=== PATIENT | female | born 1945 | race Caucasian/White ===

== ENCOUNTER 2022-01-06 09:44 | Observation (INO) ==
--- NOTE | 2021-12-03 09:56 | PAT Medication Instructions ---
Medication Instructions Date of Service December 03, 2021 Home Medications albuterol sulfate 90 mcg/actuation aerosol inhaler (Ventolin HFA) 1 inh INHALATION QID PRN cholecalciferol (vitamin D3) 50 mcg (2,000 unit) capsule (Vitamin D3) 50 mcg PO HS citalopram 20 mg tablet 20 mg PO HS levothyroxine 50 mcg tablet 50 mcg PO QAM multivitamin 1 tab PO DAILY propranolol 120 mg capsule,24 hr,extended release 120 mg PO QPM simvastatin 20 mg tablet 20 mg PO HS DO NOT take the morning of surgery multivitamin 1 tab PO DAILY Take morning of surgery With a small sip of water, OTHERWISE NOTHING TO EAT OR DRINK AFTER MIDNIGHT: albuterol sulfate 90 mcg/actuation aerosol inhaler (Ventolin HFA) 1 inh INHALATION QID PRN (use if needed; please bring with you to hospital day of surgery if possible) levothyroxine 50 mcg tablet 50 mcg PO QAM Take evening before surgery albuterol sulfate 90 mcg/actuation aerosol inhaler (Ventolin HFA) 1 inh INHALATION QID PRN (if needed) cholecalciferol (vitamin D3) 50 mcg (2,000 unit) capsule (Vitamin D3) 50 mcg PO HS citalopram 20 mg tablet 20 mg PO HS propranolol 120 mg capsule,24 hr,extended release 120 mg PO QPM simvastatin 20 mg tablet 20 mg PO HS Other Notes If you have any questions please call us at [phone] or [phone] or [phone] or [phone]
--- NOTE | 2021-12-07 14:23 | Anesthesiology Consultation ---
Date of Service December 07, 2021 Assessment & Plan (1) Encounter for pre-operative examination: - COVID screening: Per assessment on 12/07: No known COVID-19 positive contacts or current COVID-19 related symptoms. Travel screen negative. Patient vaccinate d. Surgeon arranging preop COVID testing. Awaiting results. - Post-op complications: After cholecystectomy (20+ years ago), patient was being transferred to recovery area and states she needed mouth to mouth for a few minutes (no chest compressions). Patient reports no further issues for hospital stay and able to be discharged in normal timeframe. No further f ollowup/workup was recommended. No similar issues with multiple other surgeries/anesthesia. Chart Review Chart Review: Acceptable Risk for Surgery and Patient seen in Pre Admission Testing Teaching & Discussion Pre-Anesthesia Teaching/Discussion Notes: Instructed NPO after midnight before surgery,except medications with 15 cc of water. Medication instructions provided according to the PAT guidelines. History Surgery Operation Date: 01/06/22 08:15 Proposed Procedures p Left Total Knee Arthroplasty - Julio Vilchis DO Height/Weight Height: 4 ft 11 in Weight: 77.4 kg Allergies Allergy/AdvReac Type Severity Reaction Status Date / Time Iodinated Contrast Media Allergy Severe Hives, Verified 12/04/21 10:52 dyspnea codeine Allergy Intermediate Hives Verified 12/03/21 08:06 droperidol [From Inapsine] Allergy Intermediate Eye Verified 12/04/21 10:52 drooping morphine Allergy Intermediate Hives Verified 12/03/21 08:06 Sulfa (Sulfonamide Allergy Intermediate Hives Verified 12/03/21 08:06 Antibiotics) Medications Home Medications Medication Instructions Recorded Confirmed Last Taken albuterol sulfate 90 mcg/actuation 1 inh INHALATION QID PRN 12/03/21 12/03/21 Unknown aerosol inhaler (Ventolin HFA) cholecalciferol (vitamin D3) 50 50 mcg PO HS 12/03/21 12/03/21 Unknown mcg (2,000 unit) capsule (Vitamin D3) citalopram 20 mg tablet 20 mg PO HS 12/03/21 12/03/21 Unknown levothyroxine 50 mcg tablet 50 mcg PO QAM 12/03/21 12/03/21 Unknown multivitamin 1 tab PO DAILY 12/03/21 12/03/21 Unknown propranolol 120 mg capsule,24 120 mg PO QPM 12/03/21 12/03/21 Unknown hr,extended release simvastatin 20 mg tablet 20 mg PO HS 12/03/21 12/03/21 Unknown Tylenol 1 tab PO HS 12/07/21 12/07/21 Unknown ibuprofen 1 tab PO HS 12/07/21 12/07/21 Unknown Past Medical History Medical History Acid reflux Depression History of anemia hx iron infusions History of COVID-19 06/2021 > symptoms at time: congestion/body aches > resolved Hx of breast cancer Right s/p surgery/radiation No limb restriction Hx of bronchitis Reason for inhaler Hyperlipidemia Hypothyroidism Osteoarthritis Vascular migraine Reason for propranolol Remote episode of migraines associated with syncopal episodes- no episode in several years Exercise / Class Metabolic Activity II 4-5 Yardwork/Stairs/Walk up hill (one FS (no CP, no SOB)) Past Family History Family History Sister Family history of diabetes mellitus Other No family history of adverse response to anesthesia Past Surgical History Surgical History H/O hand surgery LEFT THUMB TENDON REPAIR History of appendectomy History of bunionectomy RT History of carpal tunnel release RT/LEFT History of cataract surgery RT/LEFT History of section X 1 History of cholecystectomy History of colonoscopy History of esophagogastroduodenoscopy (EGD) History of hysterectomy History of lumpectomy of right breast History of salpingo-oophorectomy & EVACUATION ECTOPIC History of tooth extraction Past Anesthesia History No Family Hx of Anesthesia Complications After cholecystectomy (20+ years ago), patient was being transferred to recovery area and states she needed mouth to mouth for a few minutes (no chest compressions). Patient reports no further issues for hospital stay and able to be discharged in normal timeframe. No further followup/workup was recommended. History of PONV No Hx of PONV and No Hx of Motion Sickness Social History Smoking Status: Never smoker Do You Dip or Chew Tobacco: No Hx Alcohol Use: Yes alcohol intake frequency: holidays/special occasions only substance use type: does not use Review of Systems Patient denies chest pain, shortness of breath, dyspnea on exertion, fever, chills, cough, wheezing, palpitations. Physical Exam Vital Signs VITALS BP 120/74 P 59 TEMP 98.3 SP02 97%RA RESP 16 PHYSICAL Mildly decreased cervical extension range of motion. Full TMJ range of motion. TMD 2 finger breaths (Small chin) Mallampati Score 3 Dentition: missing molar, + caps Lungs: clear throughout to auscultation Cardiac: regular rate and rhythm, no murmurs noted Spine: normal Carotid arteries: negative bruit Extremities: no edema Lab Results Anesthesia Preop Results Results Anesthesia Widget: WBC 5.27 K/uL (4.8-10.8) 12/07/21 Hgb 14.1 g/dL (12.0-16.0) 12/07/21 Hct 41.7 % (37-47) 12/07/21 Plt 192 K/uL (130-400) 12/07/21 Na 139 mmol/L (136-145) 12/07/21 K 4.2 mmol/L (3.5-5.1) 12/07/21 Cl 105 mmol/L (98-107) 12/07/21 CO2 28 mmol/L (21-32) 12/07/21 BUN 19 mg/dl (6-23) 12/07/21 Creat 0.68 mg/dl (0.6-1.2) 12/07/21 Glucose Level 77 mg/dl (70-99(Fasting)) 12/07/21 PT 10.7 Seconds (9.0-12.0) 12/07/21 PTT 26.8 Seconds (21.0-31.0) 12/07/21 INR 1.0 (0.9-1.1) 12/07/21 HA1c 5.6 % (4.5-5.6) 12/07/21 Urine Color Yellow 12/07/21 Urine Appearance Clear (Clear) 12/07/21 Urine pH 5.0 (4.5-7.5) 12/07/21 Urine Specific [place] 1.016 (1.000-1.030) 12/07/21 Urine Protein Negative (Negative) 12/07/21 Urine Glucose (UA) Negative (Negative) 12/07/21 Urine Ketones 2+ (Negative) H 12/07/21 Urine Blood Negative (Negative) 12/07/21 Urine Nitrite Negative (Negative) 12/07/21 Urine Bilirubin Negative (Negative) 12/07/21 Urine Urobilinogen Negative (Negative) 12/07/21 Urine Leukocyte Esterase 1+ (Negative) H 12/07/21 Urine WBC (Auto) 10-30 /hpf (0-5) H 12/07/21 Urine RBC (Auto) 0-4 /hpf (0-4) 12/07/21 Urine Hyaline Casts (Auto) 0 /lpf (0-5) 12/07/21 Urine Epithelial Cells (Auto) 20-30 /lpf (0-5) H 12/07/21 Urine Bacteria (Auto) 2+ (Negative) H 12/07/21 Blood Type AB Positive 12/07/21 Antibody Screen NEGATIVE 12/07/21 Testing Laboratory Results Surgeon's office made aware of abnormal UA* Electrocardiogram Date: 12/07/21 SB at 59bpm. NS STA. Chest X-Ray Date: 12/07/21 FINDINGS: The cardiomediastinal and hilar silhouettes are within normal limits. No pneumothorax, pleural effusion, airspace consolidation or overt pulmonary edema. Mild right hemidiaphragmatic elevation. Surgical clips project over the right axilla. Degenerative changes of the shoulders and spine. IMPRESSION: No acute process.
--- NOTE | 2021-12-15 08:35 | History & Physical Report ---
Date of Service December 15, 2021 date of surgery: 01/06/22 Procedure: Left Total Knee Arthroplasty Surgeon: Julio Vilchis Assessment & Plan (1) Arthritis of knee, left: Plan: Further care discussed with patient and at this point in time has failed conservative measures and would like to proceed with a left total knee replacement. Plan on discharge will be home with home health physical therapy. DVT prophylaxiswith TEDs, SCDs and will also place on aspirin 81 mg p.o. b.i.d. for a month postop. Patient will have follow up appointment in our office two weeks post op for staple/suture removal and re-evaluation. Patient otherwise has no other questions or concerns. The risks and benefits have been discussed including, but not limited to, risk of infection, nerve injury, stiffness, loss of motion, failure to improve, etc. Reasonable outcomes and options of treatment were discussed. An explanation of appropriate alternatives to the procedure that may be advantageous were discussed and their risks and benefits, as well as the risks and benefits of not proceeding with treatment. I offered to answer any additional inquiries concerning the treatment involved. All the patient's questions were answered. The patient is agreeable, understanding of the treatment plan and alternatives, and wishes to proceed with the treatment plan. History of Present Illness Chief Complaint: left knee pain Primary Care Provider: Julio Vilchis DO Lilly is a 76 year old female who complains of left knee pain, presents for pre-op evaluation prior to a left total knee replacement. she complains of pain, decreased range of motion and stiffness. Currently the patient states that the symptoms are moderate-severe and rated as 8/10. The pain is described as aching, sharp and throbbing. Her symptoms are aggravated by ascending stairs, daily activities, first steps while awake walking. Prior NSAIDs include IBU and Aleve as well as used Tylenol. She has been treated with previous visco injections in the past without much relief. she also had prior knee arthroscopy by Dr Devlin in 2019. Allergies Allergy/AdvReac Type Severity Reaction Status Date / Time Iodinated Contrast Media Allergy Severe Hives, Verified 12/04/21 10:52 dyspnea codeine Allergy Intermediate Hives Verified 12/03/21 08:06 droperidol [From Inapsine] Allergy Intermediate Eye Verified 12/04/21 10:52 drooping morphine Allergy Intermediate Hives Verified 12/03/21 08:06 Sulfa (Sulfonamide Allergy Intermediate Hives Verified 12/03/21 08:06 Antibiotics) Home Medications Medication Instructions Recorded Confirmed Type albuterol sulfate 90 mcg/actuation 1 inh INHALATION QID PRN 12/03/21 12/03/21 History aerosol inhaler (Ventolin HFA) cholecalciferol (vitamin D3) 50 50 mcg PO HS 12/03/21 12/03/21 History mcg (2,000 unit) capsule (Vitamin D3) citalopram 20 mg tablet 20 mg PO HS 12/03/21 12/03/21 History levothyroxine 50 mcg tablet 50 mcg PO QAM 12/03/21 12/03/21 History multivitamin 1 tab PO DAILY 12/03/21 12/03/21 History propranolol 120 mg capsule,24 120 mg PO QPM 12/03/21 12/03/21 History hr,extended release simvastatin 20 mg tablet 20 mg PO HS 12/03/21 12/03/21 History Tylenol 1 tab PO HS 12/07/21 12/07/21 History ibuprofen 1 tab PO HS 12/07/21 12/07/21 History Past Med/Surg History Medical History Acid reflux Depression History of anemia hx iron infusions History of COVID-19 06/2021 > symptoms at time: congestion/body aches > resolved Hx of breast cancer Right s/p surgery/radiation No limb restriction Hx of bronchitis Reason for inhaler Hyperlipidemia Hypothyroidism Osteoarthritis Vascular migraine Reason for propranolol Remote episode of migraines associated with syncopal episodes- no episode in several years Surgical History H/O hand surgery LEFT THUMB TENDON REPAIR History of appendectomy History of bunionectomy RT History of carpal tunnel release RT/LEFT History of cataract surgery RT/LEFT History of section X 1 History of cholecystectomy History of colonoscopy History of esophagogastroduodenoscopy (EGD) History of hysterectomy History of lumpectomy of right breast History of salpingo-oophorectomy & EVACUATION ECTOPIC History of tooth extraction Family History Sister Family history of diabetes mellitus Other No family history of adverse response to anesthesia Social History Smoking Status: Never smoker Second Hand Exposure: Yes (IN THE PAST); Hx Alcohol Use: Yes 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 Required: No Beliefs That Will Affect Care: None Current Living Situation: Spouse Feels Safe at Home: Yes Assistive Devices: Glasses Review of Systems Review of Systems: All systems reviewed & are unremarkable except as noted in HPI & below Constitutional: no fever, no chills and no sweats Respiratory: no cough and no dyspnea Cardiovascular: no chest pain, no dyspnea and no orthopnea Gastrointestinal: no abdominal pain, no nausea and no vomiting Musculoskeletal: as per Subjective / HPI Physical Exam Physical Exam: HT: 4ft 11in WT: 77.4kg Constitutional: WD/WN, vitals as above no acute distress Respiratory: normal respiratory effort, lungs clear to auscultation no respiratory distress, no labored breathing and does not use accessory muscles Cardiovascular: RRR, no murmur, no edema Gastrointestinal (Abdomen): normal bowel sounds, soft, nontender, no hepatosplenomegaly Musculoskeletal: Knee: + knee abnormal to inspection (LEFT KNEE- ), + effusion (+1 effusion), + surgical incision (well healed portals), + limited ROM of knee (ROM 0/3/110), + knee ROM with crepitation, + joint line tenderness (medial joint line) and + Carmela's sign positive; no deformity, no skin erythema, no ecchymosis, no valgus laxity, no varus laxity, anterior drawer test negative, Filiberto's sign negative and pivot shift test negative Results & Data Results & Data ([facility]) Diagnostic Findings Left Knee X-ray: left knee series confirm advanced degenerative changes to the left knee, greatest medial compartments and patellofemoral joint, showing joint space narrowing, osteophyte formation and subchondral sclerosis. no acute bony pathology noted.
[~2022-01-06 09:44] MED LIST: ACETAMINOPHEN 500 MG TAB PO SCH; BUPIVACAINE 0.5 % 5 MG/1 ML PF 10ML VIAL ONE; CeleBREX 200 MG CAP PO SCH; EPINEPHrine INJ 1 MG/ML AMP ONE; FAMOTIDINE 20 MG TAB PO SCH; GABAPENTIN 300 MG CAP PO SCH; LR 500ML BOLUS, THEN 15ML/HR IV SCH; METOCLOPRAMIDE HCL 10 MG TABLET PO SCH; ROPIVACAINE 0.5% 5 MG/ML 30 ML VIAL ONE; ROPIVACAINE 0.5% HCL/PF 150 MG, BUPIVACAINE 0.75% MPF 20 ML, EPINEPHrine 30MG/30ML (OR ... INFIL SCH; TRANEXAMIC ACID 1,000 MG **IV Intra-op IV SCH; TRANEXAMIC ACID 1,000 MG **IV Pre-op IV SCH; ceFAZolin 2000MG 2,000 MG/15 ML SYR IV SCH; dexAMETHasone 4 MG TAB PO SCH
[2022-01-06] MEDS ORDERED: ONDANSETRON INJ 2 MG/ML 2 ML VIAL IV PRN (10:09)
[2022-01-06] MEDS ORDERED: fentaNYL citrate 100 MCG/2 ML VIAL IV PRN (10:09)
[2022-01-06] MEDS ORDERED: ATROPINE SULFATE 0.1 MG/ML 10ML SYR IV PRN (10:09)
[2022-01-06] MEDS ORDERED: ePHEDrine sulfate 50 MG/ML AMP IV PRN (10:09)
[2022-01-06] MEDS ORDERED: PHENYLEPHRINE 100MCG/ML 5ML SYR IV PRN (10:09)
[2022-01-06] MEDS ORDERED: LABETALOL HCL IV 5 MG/ML 20ML IV PRN (10:09)
--- NOTE | 2022-01-06 10:45 | History & Physical Bridge Note ---
Date of Service January 06, 2022 History & Physical Bridge Note I have examined the patient, reviewed the History & Physical and in the interval since the performance of the History & Physical I have noted the following changes of clinical significance: no changes noted
[2022-01-06] MEDS ORDERED: PROPOFOL IV EMULSION 10 MG/ML 20 ML VIAL IV ONE ×2 (11:13→14:00)
[2022-01-06] MEDS ORDERED: fentaNYL citrate 100 MCG/2 ML VIAL ONE (11:13)
[2022-01-06] MEDS ORDERED: LIDOCAINE 2% 2 ML VIAL/AMP(20MG/ML) INFIL ONE (11:13)
[2022-01-06] MEDS ORDERED: ORTHO JOINT ANESTHETIC ONE (12:16)
[2022-01-06] MEDS ORDERED: MIDAZOLAM HCL 1 MG/ML 2ML VIAL ONE (12:44)
--- NOTE | 2022-01-06 13:59 | Operative Report ---
Post Operative Report Pre & Post Diagnosis Operation Date: 01/06/22 12:10 Pre-Op Diagnosis: Left Knee Osteoarthritis Post-Op Diagnosis: Left Knee Osteoarthritis Procedure Operation Date: 01/06/22 12:10 Actual Procedures p Left Total Knee Arthroplasty(Left) - Julio Vilchis DO Surgeon Julio Vilchis DO I attest to the content of the Intraoperative Record and any orders documented therein. Any exceptions are noted below.
--- NOTE | 2022-01-06 14:01 | Operative Report ---
Post Operative Report Pre & Post Diagnosis Operation Date: 01/06/22 12:10 Pre-Op Diagnosis: Left Knee Osteoarthritis Post-Op Diagnosis: Left Knee Osteoarthritis I identified the patient and participated in the time-out.: Yes Procedure Operation Date: 01/06/22 12:10 Actual Procedures p Left Total Knee Arthroplasty(Left utilizing [employer] journey 2 patient matched size 4 femur 3 tibia 11 polytwenty 9 oval patella- Julio Vilchis DO Surgeon Julio Vilchis DO Magnesium Mill Operator Brandon VALLE Estimated Blood Loss 5 Findings Consistent with Post-Op Diagnosis Patient presents with severe end-stage tricompartmental degenerative joint disease left knee varus alignment subchondral sclerosis marginal osteophytes subchondral cystic changes with a moderate to large effusion Specimens Bone and cartilage Drains Medium bore Hemovac Anesthesia Type MAC Spinal Regional Complications none Disposition Accompanied Patient To Recovery: No Disposition: Recovery Room Indications Patient presents with severe end-stage DJD failing attempted conservative management above intraoperative findings were noted patient failed attempted corticosteroid injection viscosupplementation relative rest activity modification the above intraoperative findings were noted Description of Procedure After proper prepping and draping of the left lower extremity anterior midline incision was made over the region of the extensor extensor mechanism after meticulous hemostasis was obtained and maintained in subcutaneous tissues a medial parapatellar incision was made The patella was subluxed lateralward the medial lateral gutter were cleaned from any hypertrophic synovitis and scar tissue of the distal femoral block was placed and the distal femoral osteotomy cut was made subsequently the chamfers anterior and posterior osteotomy cuts were made utilizing the 4-in-1 block the tibia was subsequently subluxed anteriorward medial and ateral meniscal remnants were excised in their entirety remnants of the anterior and posterior cruciate ligaments were excised in their entirety excellent exposure of the proximal tibia was obtained the tibial osteotomy guide was placed on the proximal tibial osteotomy cut was made once again the knee was irrigated with copious amounts of sterile saline solution the patella was subsequently everted lateralward thickened scar tissue around the patella was removed the patella was subsequently cut utilizing a freehand technique and was drilled prepared for final preparation and placement of patella socially flexion-extension gaps were checked and the equal and symmetric trials were placed to the appropriate femoral and tibial trials with poly-spacer being placed for equal flexion and extension gaps and full range of motion including extension to 0 and flexion to 140 the trial components after having been taken to recovery range of motion was subsequently removed meticulous hemostasis was obtained and maintained subsequently a knee block injection of joint cocktail including ropivacaine 0.5% 150 mg. Bupivacaine 0.5% epinephrine 1-200,030 mL's toradol 30 mg dexamethasone 4 mg ketamine 10 mg clonidine 100 micrograms normal saline solution 30 mg was infiltrated into the soft tissues of the posterior knee medial lateral gutters and periosteal synovium special attention was paid to protect neurovascular structures at all times subsequently trial components having been removed the knee was irrigated with sterile saline solution. debris was removed the proximal tibia was subsequently prepared and was made ready for the placement of the tibial component tibial component was also cemented and tamped into position the femoral component was subsequently placed and cemented in the position the patellar component was subsequently cemented in position because hemostasis once again obtained and maintained wound having been thoroughly irrigated with debridement and debridement lavage was performed as well as a medial parapatellar incision closed with #1 Vicryl in interrupted fashion subcutaneous was closed with #2 Vicryl skin was closed with skin clips. PA-C was necessary for prepping and drapping as well as wound closure of deep fascia Sub cutaneous tissue and skin and was necessary for the case. A sterile compressive dressing was placed patient was taken to recovery in stable condition of report dictated by Deng I attest to the content of the Intraoperative Record and any orders documented therein. Any exceptions are noted below.Due to the complex nature of the procedure, the entire surgery was performed with the operational assistance of Brandon GERMAN. The wet process miller head assistant, under direct supervision, was involved in the actual performance of all aspects of the surgical procedure including hemostasis, tissue retraction and incision, instrument management, patient positioning, and wound closure. I attest to the content of the Intraoperative Record and any orders documented therein. Any exceptions are noted below.
--- NOTE | 2022-01-06 15:28 | XRay Report ---
XR knee LT 1 or 2V routine CLINICAL HISTORY: Surgical Post Op TECHNIQUE: 2 views of the left knee were obtained. Comparison: None available at the time of this dictation. FINDINGS: Expected postsurgical appearance of left total knee arthroplasty. No periarticular lucency or hardwar e fracture is seen. Soft tissue swelling and subcutaneous emphysema are seen. IMPRESSION: Expected postoperative appearance status post placement of total knee arthroplasty. ACT 112: Negative or not required by law. Electronically signed by: Hammad Springer M.D. 01/06/2022 3:27 PM
--- NOTE | 2022-01-06 15:36 | Anesthesiology Progress Note ---
Date of Service January 06, 2022 Anesthesia Post Procedure Vital Signs Vital Signs: Temp Pulse Pulse Resp BP Pulse Ox 01/06/22 15:35 36.4 C L 63 18 131/59 L 96 01/06/22 15:25 36.4 C L 62 16 145/68 H 95 01/06/22 15:15 65 18 129/67 96 01/06/22 15:05 65 16 138/80 100 01/06/22 14:55 60 16 151/72 H 100 01/06/22 14:46 36.8 C 62 16 178/89 H 97 01/06/22 10:10 36.6 C 62 20 159/93 H 97 Transfer of Care Handoff Completed per policy Notes Mental Status: alert / awake / arousable Patient Amnestic to Procedure: Yes Nausea / Vomiting: adequately controlled Pain: adequately controlled Airway Patency, RR, SpO2: stable & adequate BP & HR: stable & adequate Hydration State: stable & adequate Neuraxial Anesthesia: was administered and sensory block is resolving Anesthetic Complications: no major complications apparent and Pt Satisfied with anesthetic care
[2022-01-06] MEDS ORDERED: NALOXONE HCL 0.4 MG/1 ML VIAL/CARP IV PRN (17:01)
[2022-01-06] MEDS ORDERED: MAGNESIUM HYDROXIDE SUSP 30 ML UDC PO PRN (17:01)
[2022-01-06] MEDS ORDERED: bisacodyL 10 MG SUPP PR PRN (17:01)
[2022-01-06] MEDS ORDERED: ALBUTEROL HFA 8 GM INHALER INH PRN (17:01)
[2022-01-06] MEDS ORDERED: HYDROmorphone INJ 0.5 MG/0.5 ML SYR IV PRN (17:01)
[2022-01-06] MEDS: SODIUM CHLORIDE 0.9% 1000ML 1,000 ML IV SCH (18:19)
[2022-01-06] MEDS ORDERED: CHOLECALCIFEROL 1,000 UNITS 25 MCG TAB PO SCH (21:00)
[2022-01-06] MEDS ORDERED: CITALOPRAM 20 MG TAB PO SCH (21:00)
[2022-01-06] MEDS ORDERED: SIMVASTATIN 20 MG TAB PO SCH (21:00)
[2022-01-06] MEDS ORDERED: SENNA 8.6 MG TAB PO SCH (21:00)
[2022-01-06] MEDS ORDERED: PROPRANOLOL HCL 60 MG LA CAP PO SCH (21:00)
[2022-01-06] MEDS: ASPIRIN 81 MG ECTAB PO SCH (21:58)
[2022-01-06] MEDS: ceFAZolin 1000MG 1,000 MG/7.5 ML SYR IV SCH (21:59)
[2022-01-06] MEDS: DOCUSATE SODIUM 100 MG CAP PO SCH (21:59)
[2022-01-06] MEDS: ACETAMINOPHEN 500 MG TAB PO SCH (22:00)
[2022-01-06] MEDS: oxyCODONE HCL IR 5 MG TAB (IMMEDIATE RELEASE) PO PRN (22:12)
[2022-01-07] MEDS: oxyCODONE HCL IR 5 MG TAB (IMMEDIATE RELEASE) PO PRN ×3 (03:31→15:34)
[2022-01-07] MEDS: SODIUM CHLORIDE 0.9% 1000ML 1,000 ML IV SCH (05:20)
[2022-01-07 06:18] LABS: Hematocrit (blood only) 34.8 % (37-47); Mean Corpuscular Hemoglobin 29.3 pg (25-34); Mean Corpuscular Hgb Conc 34.5 g/dL (32-36); Mean Corpuscular Volume 84.9 fL (80-100); Mean Platelet Volume 8.6 fL (7.4-10.4); Platelet Count 147 K/uL (130-400); RDW Coefficient of Variation 12.6 % (11.5-14.5); RDW Standard Deviation 38.7 fL (36.4-46.3); White Blood Count 11.63 K/uL (4.8-10.8)
[2022-01-07] MEDS: ceFAZolin 1000MG 1,000 MG/7.5 ML SYR IV SCH (06:24)
[2022-01-07] MEDS: ACETAMINOPHEN 500 MG TAB PO SCH ×2 (06:24→13:36)
[2022-01-07] MEDS ORDERED: LEVOTHYROXINE SODIUM 50 MCG TABLET PO SCH (06:30)
[2022-01-07 06:33] LABS: BUN Creatinine Ratio 24.6 (10-20); Calcium 8.3 mg/dl (8.5-10.1); Creatinine Clr Calc Pharmacy 64.3 ml/min; Est GFR (African American) 99.3 ml/min; Est GFR (Non-African American) 85.6 ml/min; Potassium 4.2 mmol/L (3.5-5.1)
[2022-01-07] MEDS: ONDANSETRON INJ 2 MG/ML 2 ML VIAL IV PRN ×2 (06:44→12:28)
[2022-01-07] MEDS: DOCUSATE SODIUM 100 MG CAP PO SCH (08:32)
[2022-01-07] MEDS: ASPIRIN 81 MG ECTAB PO SCH (08:32)
[2022-01-07] MEDS ORDERED: MULTIVITAMIN TAB PO SCH (09:00)
--- NOTE | 2022-01-07 09:02 | Orthopedic Progress Note ---
Date of Service January 07, 2022 Assessment & Plan (1) Arthritis of knee, left: Plan: Postop day 1 status post left total knee arthroplasty. PT/OT protocols. Weightbearing as tolerated. DVT prophylaxis-aspirin p.o. twice daily, SCDalexandra, FIFI child. Pain management as written. DC planning-patient is planning for home health services upon discharge. Admission and Anticipated Discharge Date Admission Date: January 06, 2022 Supervising Physician Co-Signing Physician Notes Patient seen and examined. Agree with LEONARD Claire's note as above. She is doing very well. Pain is controlled and she is mobilizing well. She feels ready for discharge. Subjective Postop day 1 Patient sitting in her chair at the bedside eating breakfast. No complaints this morning. Pain is controlled. Denies shortness of breath, chest pain, lightheadedness. Physical Exam Physical Exam: Dressings are clean, dry, and intact. Calves are soft and nontender. Neurovascular is intact. Toes are mobile. She has good dorsiflexion and plantarflexion of the left foot. Hemovac drainage was 125 cc from the previous shift. Results & Data ([facility]) Vital Signs (Past 12 Hours) Vital Signs Temp Pulse Resp BP Pulse Ox 01/07/22 07:12 36.6 C 61 16 99/58 L 96 01/07/22 04:05 36.4 C L 63 16 108/66 97 01/06/22 22:10 36.5 C 60 14 115/70 97 Laboratory Results Laboratory Results WBC 11.63 K/uL (4.8-10.8) H 01/07/22 05:39 RBC 4.10 M/uL (4.2-5.4) L 01/07/22 05:39 Hgb 12.0 g/dL (12.0-16.0) 01/07/22 05:39 Hct 34.8 % (37-47) L 01/07/22 05:39 MCV 84.9 fL (80-100) 01/07/22 05:39 MCH 29.3 pg (25-34) 01/07/22 05:39 MCHC 34.5 g/dL (32-36) 01/07/22 05:39 RDW Std Deviation 38.7 fL (36.4-46.3) 01/07/22 05:39 RDW Coeff of Ruddy 12.6 % (11.5-14.5) 01/07/22 05:39 Plt Count 147 K/uL (130-400) 01/07/22 05:39 MPV 8.6 fL (7.4-10.4) 01/07/22 05:39 Sodium 135 mmol/L (136-145) L 01/07/22 05:39 Potassium 4.2 mmol/L (3.5-5.1) 01/07/22 05:39 Chloride 108 mmol/L (98-107) H 01/07/22 05:39 Carbon Dioxide 22 mmol/L (21-32) 01/07/22 05:39 Anion Gap 5 (3-11) 01/07/22 05:39 BUN 16 mg/dl (6-23) 01/07/22 05:39 Creatinine 0.65 mg/dl (0.6-1.2) 01/07/22 05:39 Est Cr Clr Drug Dosing 64.3 ml/min 01/07/22 05:39 Est GFR ( Amer) 99.3 ml/min 01/07/22 05:39 Est GFR (Non-Af Amer) 85.6 ml/min 01/07/22 05:39 BUN/Creatinine Ratio 24.6 (10-20) H 01/07/22 05:39 Glucose 168 mg/dl (70-99(Fasting)) H 01/07/22 05:39 Calcium 8.3 mg/dl (8.5-10.1) L 01/07/22 05:39 SARS-CoV-2, RNA, NAAT NEGATIVE (NEGATIVE) 01/06/22 10:00 Impressions Knee X-Ray 01/06/22 14:56 XR knee LT 1 or 2V routine CLINICAL HISTORY: Surgical Post Op TECHNIQUE: 2 views of the left knee were obtained. Comparison: None available at the time of this dictation. FINDINGS: Expected postsurgical appearance of left total knee arthroplasty. No periarticular lucency or hardware fracture is seen. Soft tissue swelling and subcutaneous emphysema are seen. IMPRESSION: Expected postoperative appearance status post placement of total knee arthroplasty. ACT 112: Negative or not required by law. Electronically signed by: Hammad Springer M.D. 01/06/2022 3:27 PM
[2022-01-07] MEDS ORDERED: ONDANSETRON 4 MG OD TAB PO PRN (12:39)
--- NOTE | 2022-01-10 13:12 | Discharge Summary ---
Date of Service January 10, 2022 Admission HPI Per Admitting Provider Lilly is a 76 year old female who complains of left knee pain, presents for pre-op evaluation prior to a left total knee replacement. she complains of pain, decreased range of motion and stiffness. Currently the patient states that the symptoms are moderate-severe and rated as 8/10. The pain is described as aching, sharp and throbbing. Her symptoms are aggravated by ascending stairs, daily activities, first steps while awake walking. Prior NSAIDs include IBU and Aleve as well as used Tylenol. She has been treated with previous visco injections in the past without much relief. she also had prior knee arthroscopy by Dr Devlin in 2019. Admission Exam Per Admitting Provider Physical Exam: HT: 4ft 11in WT: 77.4kg Constitutional: WD/WN, vitals as above no acute distress Respiratory: normal respiratory effort, lungs clear to auscultation no respiratory distress, no labored breathing and does not use accessory muscles Cardiovascular: RRR, no murmur, no edema Gastrointestinal (Abdomen): normal bowel sounds, soft, nontender, no hepatosplenomegaly Musculoskeletal: Knee: + knee abnormal to inspection (LEFT KNEE- ), + effusion (+1 effusion), + surgical incision (well healed portals), + limited ROM of knee (ROM 0/3/110), + knee ROM with crepitation, + joint line tenderness (medial joint line) and + Carmela's sign positive; no deformity, no skin erythema, no ecchymosis, no valgus laxity, no varus laxity, anterior drawer test negative, Filiberto's sign negative and pivot shift test negative Principal Diagnosis Left Knee Osteoarthritis Discharge Data Allergies Allergy/AdvReac Type Severity Reaction Status Date / Time Iodinated Contrast Media Allergy Severe Hives, Verified 01/06/22 10:07 dyspnea codeine Allergy Intermediate Hives Verified 01/06/22 10:07 droperidol [From Inapsine] Allergy Intermediate Eye Verified 01/06/22 10:07 drooping morphine Allergy Intermediate Hives Verified 01/06/22 10:07 Sulfa (Sulfonamide Allergy Intermediate Hives Verified 01/06/22 10:07 Antibiotics) Procedures Performed Operation Date: 01/06/22 12:10 Actual Procedures p Left Total Knee Arthroplasty(Left) - Julio Vilchis DO Ordered Studies 01/06/22 05:00 US - OR guided needle placemen Routine Hospital Course (1) Arthritis of knee, left: Patient:LILLY PEREZ Admit Date:01/06/22 MR#:[id number] Att Phy:Julio Vilchis D.O. Acct ID:[id number] Julita Phy:ObeyCristhian Griffiths D.O. Date:1945 Fam Phy: Age:76 Location:3E Sex:F Room/Bed:E311-1 cc: ~ *NOTICE TO RECEIVING LIBERTARIAN/AGENCY This information is strictly Confidential and protected under [place] law. [place] law prohibits you from making any further disclosure of this information unless further disclosure is expressly permitted by the written consent of the person to whom it pertains or is authorized by law. A general authorization for the release of medical or other information is not sufficient for this purpose. Hospital accepts no responsibility if the information is made available to any other person, INCLUDING THE PATIENT. ADDENDUM 01/07/22ddendum January 07, 2022 13:03 Correction: Patient was notably flexing and extending her toes this morning but later found she had a weakness with dorsiflexion of her foot. He does have a slight foot drop which is likely secondary to intraoperative injection. We discussed that this usually takes time to resolve over the next couple of days. Patient understands and has been instructed by physical therapy on how to work with her foot. It is not impeding her ambulation. She also has become somewhat nauseated but she does not feel it secondary to medications. Antiemetics are helping. She currently still wanting to go home. She states she did well with her physical therapy. Will plan for dc to home today. Addendum Signed By: <Electronically signed by Brandon Claire PA-C> 01/07/221315 Addendum Cosigned By: <Electronically signed by Aroldo Sheppard M.D.> 01/07/221605 Created: 01/07/22 Date of Service January 07, 2022 Assessment & Plan (1) Arthritis of knee, left: Plan: Postop day 1 status post left total knee arthroplasty. PT/OT protocols. Weightbearing as tolerated. DVT prophylaxis-aspirin p.o. twice daily, SCDalexandra, FIFI child. Pain management as written. DC planning-patient is planning for home health services upon discharge. Admission and Anticipated Discharge Date Admission Date: January 06, 2022 Supervising Physician Co-Signing Physician Notes Patient seen and examined. Agree with LEONARD Claire's note as above. She is doing very well. Pain is controlled and she is mobilizing well. She feels ready for discharge. Subjective Postop day 1 Patient sitting in her chair at the bedside eating breakfast. No complaints this morning. Pain is controlled. Denies shortness of breath, chest pain, lightheadedness. Physical Exam Physical Exam: Dressings are clean, dry, and intact. Calves are soft and nontender. Neurovascular is intact. Toes are mobile. She has good dorsiflexion and plantarflexion of the left foot. Hemovac drainage was 125 cc from the previous shift. Results & Data ([facility]) Vital Signs (Past 12 Hours) Vital Signs Temp Pulse Resp BP Pulse Ox 01/07/22 07:12 36.6 C 61 16 99/58 L 96 01/07/22 04:05 36.4 C L 63 16 108/66 97 01/06/22 22:10 36.5 C 60 14 115/70 97 Laboratory Results Laboratory Results WBC 11.63 K/uL (4.8-10.8) H 01/07/22 05:39 RBC 4.10 M/uL (4.2-5.4) L 01/07/22 05:39 Hgb 12.0 g/dL (12.0-16.0) 01/07/22 05:39 Hct 34.8 % (37-47) L 01/07/22 05:39 MCV 84.9 fL (80-100) 01/07/22 05:39 MCH 29.3 pg (25-34) 01/07/22 05:39 MCHC 34.5 g/dL (32-36) 01/07/22 05:39 RDW Std Deviation 38.7 fL (36.4-46.3) 01/07/22 05:39 RDW Coeff of Ruddy 12.6 % (11.5-14.5) 01/07/22 05:39 Plt Count 147 K/uL (130-400) 01/07/22 05:39 MPV 8.6 fL (7.4-10.4) 01/07/22 05:39 Sodium 135 mmol/L (136-145) L 01/07/22 05:39 Potassium 4.2 mmol/L (3.5-5.1) 01/07/22 05:39 Chloride 108 mmol/L (98-107) H 01/07/22 05:39 Carbon Dioxide 22 mmol/L (21-32) 01/07/22 05:39 Anion Gap 5 (3-11) 01/07/22 05:39 BUN 16 mg/dl (6-23) 01/07/22 05:39 Creatinine 0.65 mg/dl (0.6-1.2) 01/07/22 05:39 Est Cr Clr Drug Dosing 64.3 ml/min 01/07/22 05:39 Est GFR ( Amer) 99.3 ml/min 01/07/22 05:39 Est GFR (Non-Af Amer) 85.6 ml/min 01/07/22 05:39 BUN/Creatinine Ratio 24.6 (10-20) H 01/07/22 05:39 Glucose 168 mg/dl (70-99(Fasting)) H 01/07/22 05:39 Calcium 8.3 mg/dl (8.5-10.1) L 01/07/22 05:39 SARS-CoV-2, RNA, NAAT NEGATIVE (NEGATIVE) 01/06/22 10:00 Impressions Knee X-Ray 01/06/22 14:56 XR knee LT 1 or 2V routine CLINICAL HISTORY: Surgical Post Op TECHNIQUE: 2 views of the left knee were obtained. Comparison: None available at the time of this dictation. FINDINGS: Expected postsurgical appearance of left total knee arthroplasty. No periarticular lucency or hardware fracture is seen. Soft tissue swelling and subcutaneous emphysema are seen. IMPRESSION: Expected postoperative appearance status post placement of total knee arthroplasty. ACT 112: Negative or not required by law. Electronically signed by: Hammad Springer M.D. 01/06/2022 3:27 PM Total Time Total Time Spent Total Time Spent (In Minutes): 10 Discharge Plan Discharge Items Patient Disposition: Home - Home Health Services Reason For Visit: Left Knee Osteoarthritis Discharge Diagnosis: Left Knee Osteoarthritis Activity: Per Instructions section Weightbearing Comment: as tolerated with walker Non-emergency contact: Surgeon Call non-emergency contact if: you have any medication questions, your temperature is above 101.5, your wound has increased redness and your wound has increased drainage Follow-up/Referrals: Julio Vilchis DO [Surgeon] - (Follow up in 14 days from the day of your surgery for your first post operative visit.) Cristhian Barnhart D.O. [Primary Care Provider] - Diet: Regular Addtl Attending Provider Instructions: ACTIVITY RECOMMENDATIONS: SELF CARE INSTRUCTIONS AFTER TOTAL KNEE REPLACEMENT A. You may need to continue a physical therapy program after discharge from the hospital. There are several options available to you. Your doctor will assist you in selecting the best one for you. 1. An out-patient facility 2 to 3 times a week for therapy or home therapy. 2. Continue working on all exercises taught to you in the hospital. Your goals should be to increase bending of your knee to 90 degrees and beyond and to fully straighten your knee. B. You may progress at your own pace from walking with a walker or crutches to a cane; then to no assistive devices. C. Make walking a part of your daily routine. Be up as much as comfortable with rest periods throughout the day. Rest with leg elevation is very important. Use the ice wrap frequently for the first 3-4 weeks. D. There are no restrictions on activities. You may ride in a car, shop, participate in front end web developer and all social activities. E. Wear the long elastic stockings (FIFI hose) 20 hours a day for 2 weeks after surgery. They can be removed several times a day for laundering and for a bath. F. You may shower, no tub baths until cleared by your doctor. SPECIAL CARE INSTRUCTIONS: VERY IMPORTANT TO READ AND REVIEW A. There are a few signs you need to watch for after you are home. Call [facility] if you notice any of the followin. Increased severe knee pain. Some pain is expected especially when you exercise. 2. Increased swelling in your leg or knee; pain or swelling of the calf muscle in either lower leg. 3. Any fluid drainage from the incision. 4. Shortness of breath or chest pain. B. Please call [facility] at if you have any concerns or questions about your operation or recovery. The doctor or his nurse will return your call promptly. C. You must take antibiotics before dental work, bladder, bowel or other surgery. Your doctor will provide you with a permanent care to carry describing this precaution. IMPORTANT: * REMEMBER TO TAKE ASPIRIN, 81 MG, TWICE DAILY FOR 4 WEEKS UNLESS OTHERWISE DIRECTED. THIS IS YOUR BLOOD THINNER. * HIGH RISK PATIENTS MAY BE PRESCRIBED A STRONGER BLOOD THINNER. THIS WILL BE PROVIDED AT DISCHARGE. * CALL IF INCREASED PAIN, REDNESS, DRAINAGE OR FEVER GREATER THAT 101. * WEAR FIFI HOSE 20 HOURS PER DAY FOR 2 WEEKS. * LAINEY Dressing - This is a large suction dressing covering your incision. This will help pull any excess drainage from the wound and allow your incision to heal properly. You may shower with this if you can keep the unit outside of the shower. If any bleeding or leakage is noted please call your doctor's office. This will remain on your incision for 7 days and then should be removed. This can be done yourself or by the home nursing staff if applicable. The entire unit is disposable once removed. Once removed, keep incision clean and dry. If redness or drainage is noted, please call your surgeon. . * DERMABOND Prineo- This is a mesh tape dressing that is covered with glue. It should remain in place until the incision is properly healed, usually 10-14 days. This dressing is designed to naturally slough off. You may trim the excess mesh tape as it peels off. Incision may be briefly wet in a shower. Dry immediately by blotting with a clean, dry towel. Do not bath or swim until instructed by your doctor. Do not scratch, rub, or pick at the dressing. Do not apply any topical ointments or lotions until dressing is completely removed and/or instructed by your doctor. There may be a small piece of suture material at one end of your incision. Do not pull or trim this. If it is bothersome or catching on clothing, you may cover it with a band-aid. FOLLOW UP VISIT: If appointment is not already scheduled: Please call [facility] to make a follow-up appointment for 2 weeks after your surgery at . Stand-Alone Forms: My [employer], Opioid Pain Management, Smoking Cessation Medications and DC Order Prescriptions: New aspirin 81 mg Tablet,Delayed Release (Dr/Ec) 81 mg PO BID 30 Days Qty: 60 RF: 0 acetaminophen [Tylenol Extra Strength] 500 mg Tablet 1,000 mg PO Q8 14 Days Qty: 84 RF: 0 polyethylene glycol 3350 [Miralax] 17 gram powder in packet 17 g PO DAILY PRN (Reason: constipation) Qty: 5 RF: 0 cefadroxil 500 mg capsule 500 mg PO BID Qty: 14 RF: 0 promethazine 25 mg tablet 25 mg PO Q6H PRN (Reason: nausea and vomiting) Qty: 12 RF: 0 oxycodone 5 mg Tablet 5 mg PO Q4H MDD 6 PRN (Reason: pain) Qty: 30 RF: 0 Continued multivitamin Tablet 1 tab PO DAILY RF: 0 citalopram 20 mg Tablet 20 mg PO HS RF: 0 levothyroxine 50 mcg Tablet 50 mcg PO QAM RF: 0 simvastatin 20 mg Tablet 20 mg PO HS RF: 0 propranolol 120 mg Capsule,Extended Release 24 Hr 120 mg PO QPM RF: 0 cholecalciferol (vitamin D3) [Vitamin D3] 50 mcg (2,000 unit) Capsule 50 mcg PO HS RF: 0 albuterol sulfate [Ventolin HFA] 90 mcg/actuation Hfa Aerosol Inhaler 1 inh INHALATION QID PRN (Reason: DX BRONCHITIS) RF: 0 Discontinued Tylenol 1 tab PO HS RF: 0 ibuprofen 1 tab PO HS RF: 0 Discharge Orders: Discharge Order (Routine); Ordered 01/07/22 Ordered By: Brandon Heard/Other Patient Handouts: DVT Post Op Prevention, Preventing Deep Vein Thrombosis, ED Nell Singer Admission Data Admit Date/Time: 01/06/22 14:56 Attending Provider: Julio Vilchis Admit Provider: Julio Vilchis Primary Care Provider: Cristhian Barnhart Other Interventions: Discharge Summary Assessment (RN) Last Done: 01/07/22 14:44
== END 2022-01-07 16:26 | disposition home health service (06) ==
LOC: PACUINP 09:44 → ASU 09:44 → 3E 17:01